=== PATIENT | male | born 1995 | race Caucasian/White ===

== ENCOUNTER 2019-11-19 23:08 | Inpatient (IN) | payer OTHER ==
[~2019-11-19] VITALS: Ht 167.6 cm; Wt 75.9 kg
--- NOTE | 2019-11-19 23:35 | NUR ---
Pt reports seixzure like activity at home and unable to get rest. said she witnessed multiple siezures. Pt reports no incontince but he felt very tired and withdrawn for 10 minutes. No other trauma. Pt has no oral trauma. Pt in room awaiting md feliz.
[2019-11-20 00:06] LABS: MEAN CORPUSCULAR HEMOGLOBIN 30.6 pg (27.5-34.5); MEAN CORPUSCULAR HGB CONC 34.4 g/dL (33.2-36.2); MEAN CORPUSCULAR VOLUME 88.9 fL (81-97); MEAN PLATELET VOLUME 10.1 fL (7.4-10.4); PLATELET COUNT 244 x10^3/uL (130-400); RED BLOOD COUNT 4.91 x10^6/uL (4.38-5.82); RED CELL DISTRIBUTION WIDTH 13.9 % (9.4-14.8)
[2019-11-20 00:17] LABS: ALANINE AMINOTRANSFERASE 56 U/L (12-78); ALBUMIN 4.2 g/dL (3.4-5.0); ANION GAP 8 mmol/L (5-15); CALCIUM 9.5 mg/dL (8.5-10.1); CHLORIDE 103 mmol/L (98-107); CREATININE 1.13 mg/dL (0.7-1.3)
[2019-11-20 00:21] LABS: ALKALINE PHOSPHATASE 67 U/L (45-117); BILIRUBIN,TOTAL 0.4 mg/dL (0.2-1.0); TROPONIN I < 0.015 ng/mL (0.000-0.045)
--- NOTE | 2019-11-20 00:24 | NUR ---
Pt had pause event and loss of loc, pt then was not responisve. Pt then was about to have cpr when he woke up and was very anxious. Md reilly to bedside for tray and onel rn. pt placed on pads. large bore piv placed by aid[facility] trauma rn. Pt then moved to [place] [id number] for closer monitoring. Bedside reprot to [facility].
[2019-11-20 00:28] LABS: BASOPHILS # (AUTO) 0.04 x10^3/uL (0-0.1); BASOPHILS % (AUTO) 0 % (0-1); EOSINOPHILS # (AUTO) 0.04 x10^3/uL (0-0.4); EOSINOPHILS % (AUTO) 0 % (1-7); LYMPHOCYTES # (AUTO) 1.94 x10^3/uL (1-3.4); LYMPHOCYTES % (AUTO) 9 % (22-44); MD SCAN; MONOCYTES # (AUTO) 1.21 x10^3/uL (0.2-0.8); MONOCYTES % (AUTO) 6 % (2-9); NEUTROPHILS # (AUTO) 17.93 x10^3/uL (1.8-6.8); NEUTROPHILS % (AUTO) 85 % (42-75)
--- NOTE | 2019-11-20 00:44 | NUR ---
PT STATED HE HAS HAD SYNCOPLE EVENTS IN THE PAST COUPLE MONTHS. PT STATED "HE HAS PASSED OUT WITH SZ LIKE ACTIVITY IN THE PAST BUT ALWAYS WAKES UP A/O X4 AND NEVER HAS BEEN CONFUSED FOR MORE THAN A MIN".
[2019-11-20] MEDS ORDERED: ONDANSETRON 2MG/ML, 2ML IVPush PRN (02:30)
[2019-11-20 02:41] VITALS: BP 123/70
[2019-11-20 04:21] VITALS: BP 123/70
[2019-11-20 05:18] LABS: CULTURE INDICATED? YES; MICROSCOPIC INDICATED
[2019-11-20 05:30] LABS: AMPHETAMINE SCREEN, URINE Negative (Negative); BARBITURATE SCREEN, URINE Negative (Negative); BENZODIAZEPINE SCREEN, URINE Negative (Negative); CANNABINOID SCREEN, URINE Positive (Negative); COCAINE SCREEN, URINE Negative (Negative); METHADONE SCREEN, URINE Negative (Negative); OPIATE SCREEN, URINE Negative (Negative)
[2019-11-20 07:36] VITALS: BP 117/70
[2019-11-20] MEDS ORDERED: SODIUM CHLORIDE 0.9% 1,000 ML IV SCH ×2 (08:00→08:26)
[2019-11-20] MEDS: CEFTRIAXONE PMX 1GM/50ML 50 ML IV SCH ×2 (08:38→20:33)
[2019-11-20 08:39] LABS: MEAN CORPUSCULAR HEMOGLOBIN 30.3 pg (27.5-34.5); MEAN CORPUSCULAR HGB CONC 33.6 g/dL (33.2-36.2); MEAN CORPUSCULAR VOLUME 90.2 fL (81-97); MEAN PLATELET VOLUME 10.6 fL (7.4-10.4); PLATELET COUNT 239 x10^3/uL (130-400); RED BLOOD COUNT 4.84 x10^6/uL (4.38-5.82); RED CELL DISTRIBUTION WIDTH 13.7 % (9.4-14.8)
[2019-11-20 08:53] LABS: TROPONIN I < 0.015 ng/mL (0.000-0.045)
[2019-11-20 09:00] LABS: BASOPHILS # (AUTO) 0.02 x10^3/uL (0-0.1); BASOPHILS % (AUTO) 0 % (0-1); EOSINOPHILS # (AUTO) 0.17 x10^3/uL (0-0.4); EOSINOPHILS % (AUTO) 1 % (1-7); LYMPHOCYTES # (AUTO) 3.36 x10^3/uL (1-3.4); LYMPHOCYTES % (AUTO) 24 % (22-44); MD SCAN; MONOCYTES # (AUTO) 1.17 x10^3/uL (0.2-0.8); MONOCYTES % (AUTO) 8 % (2-9); NEUTROPHILS % (AUTO) 66 % (42-75)
[2019-11-20] MEDS ORDERED: CEFAZOLIN PMX 1GM/50ML 50 ML ONE (13:30)
[2019-11-20] MEDS ORDERED: LIDOCAINE 1%, 20ML ONE (13:30)
[2019-11-20] MEDS ORDERED: CEFAZOLIN 1,000 MG ONE (13:30)
[2019-11-20] MEDS ORDERED: FENTANYL PF 100 MCG/2ML ONE (13:30)
[2019-11-20] MEDS ORDERED: MIDAZOLAM 1 MG/ML, 5ML ONE (13:30)
[2019-11-20 15:00] VITALS: BP 145/84
[2019-11-20] MEDS ORDERED: HOLD MEDICATION MC PRN (15:00)
[2019-11-20] MEDS: OXYcodone IR 5MG TABLET PO PRN ×2 (15:33→21:53)
[2019-11-20 19:52] VITALS: BP 154/104
[2019-11-20] MEDS: SODIUM CHLORIDE FLUSH 10ML SYR IVF SCH (21:53)
[2019-11-20] MEDS: CEFAZOLIN PMX 1GM/50ML 50 ML IVPB SCH (21:59)
[2019-11-21 01:30] VITALS: BP 137/84
[2019-11-21] MEDS: CEFAZOLIN PMX 1GM/50ML 50 ML IVPB SCH (05:18)
[2019-11-21 05:53] LABS: BASOPHILS # (AUTO) 0.03 x10^3/uL (0-0.1); BASOPHILS % (AUTO) 0 % (0-1); EOSINOPHILS # (AUTO) 0.21 x10^3/uL (0-0.4); EOSINOPHILS % (AUTO) 2 % (1-7); LYMPHOCYTES # (AUTO) 3.45 x10^3/uL (1-3.4); LYMPHOCYTES % (AUTO) 25 % (22-44); MD NO; MEAN CORPUSCULAR HEMOGLOBIN 30.1 pg (27.5-34.5); MEAN CORPUSCULAR HGB CONC 33.4 g/dL (33.2-36.2); MEAN CORPUSCULAR VOLUME 90.2 fL (81-97); MEAN PLATELET VOLUME 10.6 fL (7.4-10.4); MONOCYTES # (AUTO) 0.99 x10^3/uL (0.2-0.8); MONOCYTES % (AUTO) 7 % (2-9); NEUTROPHILS # (AUTO) 9.12 x10^3/uL (1.8-6.8); NEUTROPHILS % (AUTO) 66 % (42-75); PLATELET COUNT 218 x10^3/uL (130-400); RED CELL DISTRIBUTION WIDTH 13.9 % (9.4-14.8)
[2019-11-21 06:04] LABS: CALCIUM 9.2 mg/dL (8.5-10.1); CHLORIDE 108 mmol/L (98-107)
[2019-11-21 06:08] LABS: ANION GAP 5 mmol/L (5-15); CREATININE 0.88 mg/dL (0.7-1.3)
[2019-11-21 07:07] VITALS: BP 149/75
[2019-11-21] MEDS: OXYcodone IR 5MG TABLET PO PRN ×2 (08:29→16:03)
[2019-11-21] MEDS: CEFTRIAXONE PMX 1GM/50ML 50 ML IV SCH (08:30)
[2019-11-21] MEDS: SODIUM CHLORIDE FLUSH 10ML SYR IVF SCH (09:00)
[2019-11-21 13:01] VITALS: BP 149/88
[2019-11-21] MEDS ORDERED: CEFI200T PO (16:17)
== END 2019-11-21 16:50 | disposition home or self-care (01) | DRG 242 ==
LOC: ED 23:32 → EDIP 11-20 01:21 → 5SO 11-20 02:30 → DCLOUNGE 11-21 16:49
PROVIDERS: ADMIT Internal Medicine; ATTEND Hospitalist
PROC: 0JH606Z Insertion of Pacemaker, Dual Chamber into Chest Subcutaneous Tissue and Fascia, Open Approach (ICD-10-PCS; principal; 2019-11-20)
PROC: 02H63JZ Insertion of Pacemaker Lead into Right Atrium, Percutaneous Approach (ICD-10-PCS; 2019-11-20)
PROC: 02HK3JZ Insertion of Pacemaker Lead into Right Ventricle, Percutaneous Approach (ICD-10-PCS; 2019-11-20)
DX: I49.5 Sick sinus syndrome (principal); I46.9 Cardiac arrest, cause unspecified; N39.0 Urinary tract infection, site not specified; F12.90 Cannabis use, unspecified, uncomplicated; Z87.891 Personal history of nicotine dependence; I45.5 Other specified heart block
CPT/HCPCS: 33208; 36415; 84145; 87806; 99291; J3490; 71045; 80048; 80053; 80307; 81001; 83735; 84443; 84484; 85025; 87077; 87086; 87186; 93005; 93306; 99156; 99157; C1779; C1785; C1892; G0378; J0690; J0696; J2250; J3010; G0475; J7030